=== PATIENT | female | born 1945 | race Caucasian/White ===

== ENCOUNTER 2017-08-03 15:01 | Emergency (ER) | payer MEDICARE, OTHER ==
[~2017-08-03] VITALS: Ht 167.6 cm; Wt 74.0 kg
[2017-08-03 15:07] VITALS: BP 166/76; PULSE 63; RESP 16; TEMP 98.3; O2SAT 100
[2017-08-03] MEDS ORDERED: ATOR20TA15 PO (16:06)
[2017-08-03] MEDS ORDERED: CLON0.5T PO (16:06)
[2017-08-03] MEDS ORDERED: MIRA0.5T PO (16:06)
[2017-08-03] MEDS ORDERED: MAGN100T2 PO (16:06)
[2017-08-03] MEDS ORDERED: DULO1CAP3 PO (16:06)
[2017-08-03] MEDS ORDERED: PANT40TA3 PO (16:06)
[2017-08-03] MEDS ORDERED: VITA1000 PO (16:06)
[2017-08-03] MEDS ORDERED: CYCL10TA PO (16:06)
[2017-08-03] MEDS ORDERED: ACETAMINOPHEN 325 MG TAB PO ONE (16:15)
[2017-08-03] MEDS ORDERED: TETANUS/DIPHTHERIA TOXOID ADULT 0.5 ML VIAL IM ONE (16:30)
--- NOTE | 2017-08-03 16:53 | RADRPT ---
EXAM DATE/TIME: 08/03/2017 16:32 [facility] COMPARISON: No previous studies available for comparison. INDICATIONS : Left 1st toe pain with any pressure from walking post fall today. MEDICAL HISTORY : None. SURGICAL HISTORY : None. ENCOUNTER: Initial ACUITY: 1 day PAIN SCORE: 8/10 LOCATION: Left all over FINDINGS: Degenerative changes at the first tarsometatarsal joint. Mild hallux valgus deformity. Fractures no t appreciated CONCLUSION: Degenerative changes, negative for fracture. Derrek Rico MD FACR on August 03, 2017 at 16:50 Board Certified Radiologist. This report was verified electronically.
--- NOTE | 2017-08-03 16:54 | RADRPT ---
EXAM DATE/TIME: 08/03/2017 16:20 [facility] COMPARISON: No previous studies available for comparison. INDICATIONS : Left shoulder pain post fall today. MEDICAL HISTORY : None. SURGICAL HISTORY : None. ENCOUNTER: Initial ACUITY: 1 day PAIN SCORE: 7/10 LOCATION: Left posterior shoulder FINDINGS: Mild degenerative changes AC joint. Anatomic alignment. Fracture is not appreciated. CONCLUSION: Mild degenerative changes.. Derrek Rico MD FACR on August 03, 2017 at 16:51 Board Certified Radiologist. This report was verified electronically.
--- NOTE | 2017-08-03 17:06 | PD ---
HPI Chief Complaint: Fall Time Seen by Provider: 15:58 Travel History International Travel<30 days: No Contact w/Intl Traveler<30days: No Traveled to known affect area: No History of Present Illness HPI 72-year-old female with PMH of chronic neck and low back pain pain presents to the ED for evaluation after trip and fall. Patient states that she landed on a tile floor. On presentation she complains of left-sided shoulder pain, left- sided hip pain, left-sided knee pain and left-sided great toe pain. She endorses hitting her head but states "it was a glancing blow." She denies loss of consciousness, headache, dizziness, vision changes. She has been ambulatory since the accident. She is unsure of her last tetanus immunization. 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 PFSH Past Medical History Depression: Yes High Cholesterol: Yes Diminished Hearing: No Gastrointestinal Disorders: Yes GERD: Yes Musculoskeletal: Yes (restless leg) Immunizations Current: Yes Tetanus Vaccination: Unknown Influenza Vaccination: Yes ?: Not Past Surgical History Appendectomy: Yes Cholecystectomy: Yes Joint Replacement: Yes Tonsillectomy: Yes Social History Alcohol Use: Yes Tobacco Use: No Substance Use: No Allergies-Medications (Allergen,Severity, Reaction): Coded Allergies: codeine (Verified Adverse Reaction, Intermediate, VOMITING, 08/03/17) Reported Meds & Prescriptions Reported Meds & Active Scripts Active Reported Magnesium Citrate 100 Mg Tab 100 Mg PO DAILY PRN Vitamin D-1000 (Cholecalciferol) 1,000 Unit Tab 2,000 Units PO DAILY Clonazepam 0.5 Mg Tab 0.5 Mg PO HS Atorvastatin (Atorvastatin Calcium) 20 Mg Tab 20 Mg PO HS Flexeril (Cyclobenzaprine HCl) 10 Mg Tab 10 Mg PO TID Mirapex (Pramipexole Dihydrochloride) 0.5 Mg Tab 0.5 Mg PO BID Pantoprazole (Pantoprazole Sodium) 40 Mg Tab 40 Mg PO DAILY Duloxetine DR (Duloxetine HCl) 60 Mg Capdr 60 Mg PO DAILY Review of Systems Except as stated in HPI: all other systems reviewed are Neg Physical Exam Narrative GENERAL: Well-nourished, well-developed white female in no acute distress. Sitting up in the stretcher in no acute distress. SKIN: Warm and dry. Ecchymosis over the bicep of the right arm. 2 small superficial lacerations of the left anterior knee. Thorough evaluation reveals no other edema, ecchymosis, abrasion, or laceration of the skin. HEAD: Normocephalic. Atraumatic. No raccoon eyes or brito sign. No tenderness to palpation of the skull. No bony step-offs. No malocclusion of the teeth. EYES: No scleral icterus. No injection or drainage. PERRLA. EOMI. ENT: Pearly gonzalez tympanic membrane is bilaterally. Nasal mucosa is moist. Oropharynx without erythema, edema or exudate. NECK: Supple, trachea midline. No JVD or lymphadenopathy. No midline tenderness to palpation. Patient retains full, active, painless range of motion of the neck. CARDIOVASCULAR: Regular rate and rhythm without murmurs, gallops, or rubs. 2+ DP and radial pulses bilaterally. RESPIRATORY: Breath sounds clear and equal bilaterally. No accessory muscle use. GASTROINTESTINAL: Abdomen soft, non-tender, nondistended. + Bowel sounds MUSCULOSKELETAL: No cyanosis, or edema. No pain elicited with pelvic rocking. No tenderness to palpation over the anterior left shoulder. Pain elicited with abduction and external rotation of the left shoulder. Patient is unable to raise the shoulder beyond 90. Tender to palpation of the anterior left knee. Patient is able to flex beyond 90 and extend to 0. No patellar balloting. Negative varus/valgus stress testing. Tender to palpation of the MP joint of the great toe. Patient is able wiggle her toes. Neurovascularly intact distally.. No other tenderness to palpation or limitations to range of motion of the joints of the upper and lower extremities bilaterally. NEUROLOGICAL: Awake and alert. Cranial nerves II through XII intact. Motor and sensory grossly within normal limits. 5/5 muscle strength in all muscle groups. Normal speech. BACK: Nontender without obvious deformity. No CVA tenderness. No midline tenderness. Data Data Last Documented VS Vital Signs Date Time Temp Pulse Resp B/P (MAP) Pulse Ox O2 Delivery O2 Flow Rate FiO2 08/03/17 15:07 98.3 63 16 166/76 (106) 100 Orders Orders Shoulder, Complete (>2vws) (08/03/17 16:14) Toe (Min 2vws) (08/03/17 16:14) Ice/Cold Pack (08/03/17 16:14) Acetaminophen (Tylenol) (08/03/17 16:15) Tetanus/Diphtheria Tox Adult (Tetanus/Di (08/03/17 16:30) MDM Medical Decision Making Medical Screen Exam Complete: Yes Emergency Medical Condition: Yes Differential Diagnosis Musculoskeletal pain versus contusion versus fracture versus dislocation versus other Narrative Course 72-year-old female with PMH of chronic neck and low back pain pain presents to the ED for evaluation after trip and fall. Patient states that she landed on a tile floor. On presentation she complains of left-sided shoulder pain, left- sided hip pain, left-sided knee pain and left-sided great toe pain. She endorses hitting her head but states "it was a glancing blow." Denies LOC. Vitals reviewed. Physical exam reveals a white female in no acute distress. She has ecchymosis over the bicep of the right arm, 2 small superficial laceration of the left anterior knee. No tenderness to palpation of the bones of the skull, midline of the neck. Patient retains full, active, painless ROM of the neck. She has no tenderness to palpation of anterior left shoulder. There is pain elicited with abduction and external initiation of the left shoulder. Patient is able to raise the arm beyond 90. She tender to palpation left anterior knee but with good range of motion. No patellar bilaterally. Other testing negative. Chest has tenderness to palpation of the MP joint of the great toe. Tetanus sensation was updated. Ice packs were applied. Patient was administered 650 mg Tylenol. X-ray of the shoulder reveals mild degenerative changes. X-ray of the toe reveals degenerative changes and is negative for fracture per radiology read. On recheck patient states her pain is improved. His customers also workup with the patient. She is instructed to use RICE therapy, follow-up with her primary care provider. She indicated understanding of instructions and is agreeable care plan. She is stable and discharged home. Diagnosis Primary Impression: Fall from standing Qualified Codes: W19.XXXA - Unspecified fall, initial encounter Additional Impressions: Traumatic ecchymosis of right upper arm Qualified Codes: S40.021A - Contusion of right upper arm, initial encounter Contusion of great toe without damage to nail Qualified Codes: S90.112A - Contusion of left great toe without damage to nail , initial encounter Left shoulder pain Qualified Codes: M25.512 - Pain in left shoulder Unspecified injury of muscle(s) and tendon(s) of the rotator cuff of left shoulder, initial encounter Tetanus toxoid vaccination administered at current visit Referrals: Pain Management Primary Care Physician Patient Instructions: Contusion in Adults (ED), Fall Prevention (ED), General Instructions Additional Instructions: Rest, hydrate. Resume normal, gentle activities as tolerated. No strenuous physical activities for the next few days Resume at home medications as previously prescribed. You need rest, ibuprofen, fluids. Take [id number] pain medications such as ibuprofen as needed for headache and body aches. Applying ice or heat to areas with sore muscles may help to improve your pains. Do not apply ice/ heat for longer than 20 m/h. Follow-up with your primary care provider. Return to the ED for any urgent or emergent medical condition. Disposition: 01 DISCHARGE HOME Condition: Stable Roxy Powell Aug 03, 2017 17:06
== END 2017-08-03 17:20 | disposition home or self-care (01) ==
LOC: PHEFT 15:01
DX: S40.021A Contusion of right upper arm, initial encounter (principal); S90.112A Contusion of left great toe without damage to nail, initial encounter; M25.512 Pain in left shoulder; S46.002A Unspecified injury of muscle(s) and tendon(s) of the rotator cuff of left shoulder, initial encounter; M25.552 Pain in left hip; M25.562 Pain in left knee; W01.0XXA Fall on same level from slipping, tripping and stumbling without subsequent striking against object, initial encounter; K21.9 Gastro-esophageal reflux disease without esophagitis; E78.00 Pure hypercholesterolemia, unspecified; F32.9 Major depressive disorder, single episode, unspecified; Z23 Encounter for immunization; Z87.19 Personal history of other diseases of the digestive system; Z87.39 Personal history of other diseases of the musculoskeletal system and connective tissue
CPT/HCPCS: 73030; 73660; 90471; 90714